=== PATIENT | female | born 1990 | race Caucasian/White ===

== ENCOUNTER 2019-05-13 22:05 | Emergency (ER) | payer BC, OTHER ==
--- NOTE | 2019-05-13 23:11 | XR ---
EXAMINATION TYPE: XR chest 2V DATE OF EXAM: 05/13/2019 COMPARISON: 12/21/2014 HISTORY: Sinus disease. Cough TECHNIQUE: Frontal and lateral views of the chest are obtained. FINDINGS: Heart and mediastinum are normal. Lungs are clear. Diaphragm is normal. Bony thorax appear s normal. IMPRESSION: Normal chest. No change.
[2019-05-13] MEDS ORDERED: Acetaminophen-Codeine 300-30mg TAB PO STA (23:15)
--- NOTE | 2019-05-13 23:20 | ED ---
URI HPI - General Chief Complaint: Upper Respiratory Infection Stated Complaint: Coughing,chest pain Time Seen by Provider: 05/13/19 22:20 Source: patient Mode of arrival: ambulatory Limitations: no limitations - History of Present Illness Initial Comments: Patient is a 29-year-old female presenting to the emergency Department with complaints of a possible sinus infection that has been increasing over the last 2 weeks. Patient is currently 21 weeks , no complications. Patient states she has been to her OB for this and has tried [id number]-[id number] medications without relief of symptoms. Patient states the last 2 days the pain and pressure in her face has increased and she also now has a cough and burning in her chest after she coughs. Patient denies any fever, chills at home. Patient does admit to an increase in nausea the last few days as well as one episode of vomiting. Patient states she has not had nausea since her early . Patient has no other complaints at this time. Upon arrival to ER, vital signs stable, afebrile. - Related Data Home Medications Medication Instructions Recorded Confirmed Levothyroxine Sodium [Synthroid] 125 mcg PO DAILY 01/10/14 08/29/15 ALPRAZolam [Xanax] 0.5 mg PO TID PRN 03/26/15 08/29/15 Norgestimate-Ethinyl Estradiol 1 each PO DAILY 08/26/15 08/29/15 [Ortho Tri-Cyclen Lo Tablet] Previous Rx's Medication Instructions Recorded Hydrocodone/Acetaminophen [Emmalena 1 tab PO Q6HR PRN #20 tab 08/26/15 5-325] Ondansetron Odt [Zofran Odt] 4 mg PO Q8HR PRN #10 tab 08/26/15 Azithromycin [Zithromax Z-pack] 250 mg PO DIRECTED #1 pack 05/13/19 Allergies Allergy/AdvReac Type Severity Reaction Status Date / Time fentanyl Allergy Rash/Hives Verified 08/29/15 17:04 NSAIDS (Non-Steroidal Allergy Rash/Hives Verified 08/29/15 17:04 Anti-Inflamma Penicillins Allergy Dyspnea Verified 08/29/15 17:04 prochlorperazine edisylate AdvReac Confusion Verified 08/29/15 17:04 [From Compazine] prochlorperazine maleate AdvReac Confusion Verified 08/29/15 17:04 [From Compazine] novacaine Allergy Rash/Hives Uncoded 08/29/15 17:04 Review of Systems ROS Statement: Those systems with pertinent positive or pertinent negative responses have been documented in the HPI. ROS Other: All systems not noted in ROS Statement are negative. Past Medical History Past Medical History: Thyroid Disorder Additional Past Medical History / Comment(s): KIDNEY STONE, chronic back pain History of Any Multi-Drug Resistant Organisms: MRSA Date of last positivie culture/infection: 2014 MDRO Source:: face Past Surgical History: Appendectomy, Cholecystectomy, Tonsillectomy Additional Past Surgical History / Comment(s): I&D. HX:BACK PROBLEMS Past Anesthesia/Blood Transfusion Reactions: No Reported Reaction Past Psychological History: Anxiety Smoking Status: Former smoker Past Alcohol Use History: None Reported Past Drug Use History: None Reported General Exam - General Exam Comments Initial Comments: GENERAL: Well-appearing, well-nourished and in no acute distress. HEAD: Atraumatic, normocephalic. EYES: Pupils equal round and reactive to light, extraocular movements intact, sclera anicteric, conjunctiva are normal. ENT: TMs normal, nares patent, oropharynx clear without exudates. Moist mucous membranes. Pain with palpation on bilateral maxillary sinuses. Pain in the upper gum lines on the right side. Patient has 2 broken teeth. There is no signs of an abscess. There is some mild erythema of the gumline. NECK: Normal range of motion, supple without lymphadenopathy or JVD. LUNGS: Breath sounds clear to auscultation bilaterally and equal. No wheezes rales or rhonchi. HEART: Regular rate and rhythm without murmurs, rubs or gallops. ABDOMEN: Soft, nontender, normoactive bowel sounds. No guarding, no rebound. No masses appreciated. Patient currently 21 weeks . : Deferred EXTREMITIES: Normal range of motion, no pitting or edema. No clubbing or cyanosis. NEUROLOGICAL: Cranial nerves II through XII grossly intact. Normal speech, normal gait. PSYCH: Normal mood, normal affect. SKIN: Warm, Dry, normal turgor, no rashes or lesions noted. Limitations: no limitations Course Vital Signs 05/13/19 05/13/19 22:15 23:28 Temperature 98.7 F 98.9 F Pulse Rate 71 68 Respiratory 18 16 Rate Blood Pressure 112/73 98/55 O2 Sat by Pulse 100 98 Oximetry Medical Decision Making - Medical Decision Making Patient is a 29-year-old female presenting with sinus pain and pressure along with a cough 2 weeks. Patient is currently 21 weeks without complications. Patient was trying [id number] medications for symptom rate relief without improvement. Patient states he started developing a cough or proximal 13 days ago that has made her symptoms worse. Upon arrival to ER, vital signs are stable, afebrile. Patient is denying any fever, chills. On exam patient has tenderness over bilateral maxillary sinuses as well as erythema and pain in the upper right gum lines secondary to 2 fractured teeth. Rest of exam is within normal limits. heart tones were 144 today. Patient denies any abdominal pain, vaginal bleeding. Risks versus benefits of getting chest x- ray was discussed with the patient and she agreed to rule out pneumonia. Chest x-ray reveals no acute processes. Given the length of time of symptoms and discomfort patient will be treated with antibiotics for sinusitis. Patient will be given azithromycin and will follow-up with OB if symptoms do not improve. Patient is agreement with this plan of care. Return parameters were discussed with the patient she verbalized understanding. Case discussed with Dr. August. Disposition Clinical Impression: Sinusitis, Cough, and not yet delivered in second trimester Disposition: HOME SELF-CARE Condition: Stable Instructions (If sedation given, give patient instructions): Sinusitis (ED) Additional Instructions: Please return to the Emergency Department if symptoms worsen or any other concerns. Continue to use Tylenol for pain relief. May also use warm compresses along the face for pain relief. Take antibiotics as prescribed. Follow-up with OB. Prescriptions: Azithromycin [Zithromax Z-pack] 250 mg PO DIRECTED #1 pack Is patient prescribed a controlled substance at d/c from ED?: No Referrals: Giovanna Silver MD [Primary Care Provider] - 1-2 days
[2019-05-13 23:30] VITALS: BP 98/55; PULSE 68; RESP 16; TEMP 98.9
== END 2019-05-13 23:35 | disposition home or self-care (01) ==
LOC: EC 22:05
DX: O99.512 Diseases of the respiratory system complicating pregnancy, second trimester (principal); J32.9 Chronic sinusitis, unspecified; O9A.212 Injury, poisoning and certain other consequences of external causes complicating pregnancy, second trimester; S02.5XXA Fracture of tooth (traumatic), initial encounter for closed fracture; O99.89 Other specified diseases and conditions complicating pregnancy, childbirth and the puerperium; R07.89 Other chest pain; O99.282 Endocrine, nutritional and metabolic diseases complicating pregnancy, second trimester; E07.9 Disorder of thyroid, unspecified; Z87.891 Personal history of nicotine dependence; Z88.0 Allergy status to penicillin; Z88.4 Allergy status to anesthetic agent; Z88.5 Allergy status to narcotic agent; Z88.6 Allergy status to analgesic agent; Z88.8 Allergy status to other drugs, medicaments and biological substances; Z79.3 Long term (current) use of hormonal contraceptives; Z79.890 Hormone replacement therapy; Z86.14 Personal history of Methicillin resistant Staphylococcus aureus infection; Z90.49 Acquired absence of other specified parts of digestive tract; Z3A.21 21 weeks gestation of pregnancy; X58.XXXA Exposure to other specified factors, initial encounter
CPT/HCPCS: 71046; 99283

== ENCOUNTER 2019-05-14 21:21 | Emergency (ER) | payer BC, OTHER ==
[2019-05-14 21:28] VITALS: TEMP 97.8
--- NOTE | 2019-05-14 22:34 | ED ---
URI HPI - General Chief Complaint: Upper Respiratory Infection Stated Complaint: Cough Time Seen by Provider: 05/14/19 21:29 Source: patient Mode of arrival: ambulatory Limitations: no limitations - History of Present Illness Initial Comments: Dorene is a 29-year-old female who presents the ER today for reevaluation of URI symptoms and pressure in her face. Patient reports she's been dealing with runny stuffy nose for couple of weeks. She states that she has been seen and evaluated by her OB and was seen and evaluated in this hospital yesterday at which time chest x-ray was negative for pneumonia. Patient was started on amoxicillin. Patient reports that this morning she had some nausea and vomiting and reports that the pressure in her right-sided sinus, much worse after vomiting. Patient states the pain is just unbearable she's been taking Claritin and Mucinex DM with minimal improvement. She's been taking Tylenol. She's tried and 90 pot in the past but states she can't tolerate it. She has tried Flonase in the past but states it didn't help. - Related Data Home Medications Medication Instructions Recorded Confirmed Cholecalciferol [Vitamin D3 (25 5,000 unit PO DAILY 05/14/19 05/14/19 Mcg = 1000 Iu)] Ferrous Sulfate [Feosol] 325 mg PO DAILY 05/14/19 05/14/19 Levothyroxine Sodium [Synthroid] 100 mcg PO DAILY 05/14/19 05/14/19 Pedi Multivit No.25/Folic Acid 300 mcg PO DAILY 05/14/19 05/14/19 [Flintstones Multivit Chew Tab] Previous Rx's Medication Instructions Recorded Fluticasone Propionate [Flonase 1 spray EA NOSTRIL BID #1 bottle 05/14/19 Allergy Relief] predniSONE 40 mg PO DAILY 50 Days #10 tab 05/14/19 Allergies Allergy/AdvReac Type Severity Reaction Status Date / Time famotidine [From Pepcid] Allergy Unknown Verified 05/14/19 21:49 fentanyl Allergy Rash/Hives Verified 05/14/19 21:49 niacin Allergy Unknown Verified 05/14/19 21:49 NSAIDS (Non-Steroidal Allergy Rash/Hives Verified 05/14/19 21:49 Anti-Inflamma Penicillins Allergy Dyspnea Verified 05/14/19 21:49 prochlorperazine edisylate AdvReac Confusion Verified 05/14/19 21:49 [From Compazine] prochlorperazine maleate AdvReac Confusion Verified 05/14/19 21:49 [From Compazine] novacaine Allergy Rash/Hives Uncoded 05/14/19 21:49 Review of Systems ROS Statement: Those systems with pertinent positive or pertinent negative responses have been documented in the HPI. ROS Other: All systems not noted in ROS Statement are negative. Past Medical History Past Medical History: Thyroid Disorder Additional Past Medical History / Comment(s): KIDNEY STONE, chronic back pain History of Any Multi-Drug Resistant Organisms: MRSA Date of last positivie culture/infection: 2014 MDRO Source:: face Past Surgical History: Appendectomy, Cholecystectomy, Tonsillectomy Additional Past Surgical History / Comment(s): I&D. HX:BACK PROBLEMS Past Anesthesia/Blood Transfusion Reactions: No Reported Reaction Past Psychological History: Anxiety Smoking Status: Former smoker Past Alcohol Use History: None Reported Past Drug Use History: None Reported General Exam - General Exam Comments Initial Comments: Physical Exam GENERAL: Patient is well-developed and well-nourished. Patient is nontoxic and well-hydrated HENT: Normocephalic, Atraumatic. TMs are normal bilaterally, no erythema or signs of infection Nasal mucosa is edematous but there is no purulent drainage Posterior oropharynx with signs of postnasal drip but no tonsillar hypertrophy or exudate EYES: PERRL, EOMI PULMONARY: Unlabored respirations. No audible rales rhonchi or wheezing was noted. CARDIOVASCULAR: There is a regular rate and rhythm without any murmurs gallops or rubs. ABDOMEN: Gravid SKIN: No Rash : Deferred NEUROLOGIC: Patient is alert and oriented x3. Moving all extremities spontaneously MUSCULOSKELETAL: Normal extremities with adequate strength and full range of motion. No lower extremity swelling or edema. No calf tenderness. PSYCHIATRIC: Normal psychiatric evaluation. Limitations: no limitations Course Vital Signs 05/14/19 05/14/19 21:24 22:54 Temperature 97.8 F Pulse Rate 83 89 Respiratory 16 17 Rate Blood Pressure 142/84 136/76 O2 Sat by Pulse 100 97 Oximetry Medical Decision Making - Medical Decision Making The patient was seen and evaluated history is obtained from the patient History and physical exam are concerning for sinus pain and pressure with no signs of infection. In addition the patient does have some broken dentition with no signs of infection. I did encourage the patient to continue the azithromycin as prescribed, I recommended Flonase twice a day, I recommended the patient again try the Anastasiya pot and recommended 5 days of steroids to help with inflammation. Patient had a negative chest x-ray yesterday, her lung sounds are clear today I do not feel she would benefit from repeat chest x-ray today. She is experiencing pleuritic pain with coughing however I feel this likely related to a bronchitis. She is not having any shortness of breath. Patient will be discharged home with prescriptions for Flonase and prednisone. On discharge patient became very agitated stating that she is not getting any treatment because she is . Patient states that she tried Flonase and get better she states that she is not willing to take prednisone. She did not take the prescriptions home with her upon leaving the emergency department. Disposition Clinical Impression: Acute upper respiratory infection Disposition: HOME SELF-CARE Condition: Stable Instructions (If sedation given, give patient instructions): Upper Respiratory Infection (ED) Prescriptions: Fluticasone Propionate [Flonase Allergy Relief] 1 spray EA NOSTRIL BID #1 bottle predniSONE 40 mg PO DAILY 50 Days #10 tab Is patient prescribed a controlled substance at d/c from ED?: No Referrals: Giovanna Silver MD [Primary Care Provider] - 1-2 days
[2019-05-14 22:55] VITALS: BP 136/76; PULSE 89; RESP 17
== END 2019-05-14 22:58 | disposition home or self-care (01) ==
LOC: EC 21:21
DX: J06.9 Acute upper respiratory infection, unspecified (principal); S02.5XXA Fracture of tooth (traumatic), initial encounter for closed fracture; E07.9 Disorder of thyroid, unspecified; Z86.14 Personal history of Methicillin resistant Staphylococcus aureus infection; Z87.891 Personal history of nicotine dependence; Z79.890 Hormone replacement therapy; Z88.8 Allergy status to other drugs, medicaments and biological substances; Z88.5 Allergy status to narcotic agent; Z88.6 Allergy status to analgesic agent; Z88.0 Allergy status to penicillin; Z88.4 Allergy status to anesthetic agent
CPT/HCPCS: 99283